=== PATIENT | male | born 1995 | race American Indian/Alaskan Native ===

== ENCOUNTER 2019-01-05 06:18 | Emergency (ER) | payer OTHER ==
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
== END 2019-01-05 08:10 | disposition home or self-care (01) ==
LOC: ED 06:18
CPT/HCPCS: 99282